=== PATIENT | female | born 1980 | race American Indian/Alaskan Native ===

== ENCOUNTER 2018-02-26 12:24 | Emergency (ER) | payer MEDICAID ==
[2018-02-26 12:31] VITALS: RESP 18; O2SAT 99
[2018-02-26] MEDS ORDERED: Rabies Immune Globulin 150 INTLU/ML VIAL IM ONE (13:29)
[2018-02-26] MEDS ORDERED: Amoxicillin-Clav 875-125 mg Tab PO STA (13:31)
[2018-02-26] MEDS ORDERED: Amoxicillin-Clav 875-125 mg Tab PO ONE (13:39)
--- NOTE | 2018-02-26 14:30 | C.PDOC ---
History Of Present Illness 37-year-old female, presents to the emergency department with complaints of dog bite. Patient states she was helping a blind person cross the street, and was attacked by his dog. Patient states the dog bit her inner left thigh, prompting visit. 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 Denies any nausea/vomiting, numbness/weakness or any other associated symptoms. (+)up to date with tetanus. Time Seen by Provider: 02/26/18 12:36 Chief Complaint (Nursing): Bite History Per: Patient History/Exam Limitations: no limitations Current Symptoms Are (Timing): Still Present Past Medical History Reviewed: Historical Data, Nursing Documentation, Vital Signs Vital Signs: Last Vital Signs Temp 98.9 F 02/26/18 14:30 Pulse 88 02/26/18 14:30 Resp 18 02/26/18 14:30 BP 124/81 02/26/18 14:30 Pulse Ox 99 02/26/18 15:27 - Medical History PMH: Graves' Disease Family History: States: No Known Family Hx - Social History Hx Alcohol Use: Yes Hx Substance Use: No Review Of Systems Constitutional: Negative for: Fever, Chills Gastrointestinal: Negative for: Nausea, Vomiting, Abdominal Pain Musculoskeletal: Negative for: Neck Pain, Back Pain Skin: Positive for: Other (bite to left thigh) Neurological: Negative for: Weakness, Numbness Physical Exam - Physical Exam Appears: Non-toxic, No Acute Distress Skin: Warm, Dry, Other ( deep abrasion of the inner left thigh, 3cm.) Head: Atraumatic, Normacephalic Eye(s): bilateral: Normal Inspection Nose: Normal Oral Mucosa: Moist Lips: Normal Appearing Neck: Normal ROM Cardiovascular: Rhythm Regular, No Murmur Respiratory: Normal Breath Sounds, No Accessory Muscle Use Extremity: No Deformity, No Swelling Neurological/Psych: Oriented x3, Normal Speech ED Course And Treatment O2 Sat by Pulse Oximetry: 99 (RA) Pulse Ox Interpretation: Normal Progress Note: Patient given vaccination and Augmentin. Pt given Rabies Immune globulin. Disposition - Disposition Disposition: HOME/ ROUTINE Disposition Time: 14:26 Condition: STABLE Additional Instructions: Follow up with your PMD/Clinic. You need to complete Rabies vaccination by getting vaccine on March 01, March 05 and March 12. Take Augmentin every 12 h after meal for 7 days. Return to ED immediately if notice any type of wound infection or if developing fever. Prescriptions: Amoxicillin/Clavulanate [Augmentin 875 MG-125 MG] 1 tab PO BID #14 tab Bacitracin OINT 1 applic TP TID #45 g Instructions: Animal Bites (DC) Forms: [employer] (Vietnamese) - Clinical Impression Clinical Impression: Dog bite of extremity - Scribe Statement The provider has reviewed the documentation as recorded by the Scribe (Preston Noriega) All medical record entries made by the Scribe were at my direction and personally dictated by me. I have reviewed the chart and agree that the record accurately reflects my personal performance of the history, physical exam, medical decision making, and the department course for this patient. I have also personally directed, reviewed, and agree with the discharge instructions and disposition.
[2018-02-26 14:31] VITALS: BP 124/81; PULSE 88; TEMP 98.9
== END 2018-02-26 14:55 | disposition home or self-care (01) ==
LOC: C.ER 12:24
DX: S71.152A Open bite, left thigh, initial encounter (principal); W54.0XXA Bitten by dog, initial encounter; Z23 Encounter for immunization